=== PATIENT | male | born 1955 | race Two or more races ===

== ENCOUNTER 2024-09-19 09:05 | Day surgery (SDC) | payer MEDICARE ==
[2024-09-16 09:25] LABS: Basophils # (auto) 0.1 10 ^3/uL (0-0.2); Basophils % (auto) 0.8 % (0.0-2.0); Eosinophils # (auto) 0.1 10 ^3/uL (0-0.8); Eosinophils % (auto) 0.7 % (0.0-7.0); Hematocrit 42.1 % (41.0-53.0); Hemoglobin 14.7 g/dL (13.5-17.5); Lymphocytes # (auto) 1.5 10 ^3/uL (0.4-5.4); Mean Corpuscular Hemoglobin 30.9 pg (28.0-32.0); Mean Corpuscular Hgb Conc. 34.9 g/dL (32.0-36.0); Mean Corpuscular Volume 88.4 fL (80.0-100.0); Monocytes # (auto) 0.5 10 ^3/uL (0-1.3); Monocytes % (auto) 7.7 % (0.0-12.0); Neutrophils # (auto) 4.9 10 ^3/uL (1.6-8.6); Neutrophils % (auto) 69.8 % (37.0-80.0); Nucleated Red Blood Cells % 0.1 %; Platelet Count (auto) 294 10^3/uL (140-450); Red Blood Cells 4.77 10^6/uL (4.5-5.90); Red Cell Distribution Width 13.3 % (11.8-14.3); White Blood Cell 7.1 10^3/uL (4.4-10.8)
[2024-09-16 09:35] LABS: INR 1.04 (0.9-1.15); Partial Thromboplastin Time 25.4 SEC (24.5-34.5)
[2024-09-16 10:09] LABS: Alanine Aminotransferase 29 U/L (7-40); Alkaline Phosphatase 71 U/L (46-116); Anion Gap 8 (5-15); Calcium 9.9 mg/dL (8.7-10.4); Carbon Dioxide 27 mmol/L (20-31); Chloride 105 mmol/L (98-107); Glucose 75 mg/dL (74-106); Potassium 4.5 mmol/L (3.5-5.1); Sodium 140 mmol/L (136-145)
[2024-09-16 10:10] LABS: Blood Urea Nitrogen 12 mg/dL (9-23); Total Protein 7.3 g/dL (5.7-8.2)
[2024-09-16 10:11] LABS: Aspartate Aminotransferase 16 U/L (13-40)
[2024-09-16 10:12] LABS: Albumin 4.9 g/dL (3.2-4.8); Bilirubin, Total 0.6 mg/dL (0.2-1.0)
[~2024-09-19] VITALS: Ht 175.3 cm; Wt 101.6 kg
[~2024-09-19 09:05] MED LIST: ASPI-543 PO; GABA-1308 PO; INSU100I28 IJ; INSU100I33 SC; LATA0.008 EACHEYE; LISI40TA16 PO; ROSU10TA16 PO
[2024-09-19] MEDS ORDERED: SODIUM CHLORIDE LOCK 10 ML ONE (10:57)
[2024-09-19] MEDS ORDERED: HYDROmorphone HCL 2 MG/ML VL/or syr ONE (10:58)
[2024-09-19 11:19] VITALS: O2SAT 97
[2024-09-19] MEDS: MIDAZOLAM HCL 5 MG/ML-1ML VIAL ONE (11:27)
[2024-09-19] MEDS: fentaNYL CITRATE 100 MCG/2 ML VL ONE (11:27)
[2024-09-19] MEDS: diphenhdrAMINE HCL 50 MG/1 ML VL ONE (11:27)
[2024-09-19 11:55] VITALS: PULSE 72; RESP 13; TEMP 98; O2SAT 96
--- NOTE | 2024-09-19 11:58 | DVHOP2 ---
Operative Report DATE OF OPERATION: 09/19/24 PROCEDURE: Colonoscopy with snare polypectomy. PREOPERATIVE INDICATION: The patient is a 69 -year-old male undergoing colonoscopy for colon cancer screening POSTOPERATIVE DIAGNOSES: 1. There was a 1 cm benign-appearing cecal polyp that was seen and removed by hot snare polypectomy 2. There were three diminutive other adjacent cecal and ileocecal valve polyps that were seen and removed by cold biopsy forceps 3. There were 2 1-2 mm benign-appearing transverse colon polyps that was seen and removed by cold biopsy forceps 4. There was a 2 mm benign-appearing sigmoid polyp that was seen and removed via cold biopsy forceps 5. Trace to 1+ internal hemorrhoids otherwise grossly normal examination up to the cecum PROCEDURE PERFORMED BY: Bolivar Herman M.D. SCOPE: Olympus videocolonoscope. ASA CLASS: 2. PREOPERATIVE MEDICATIONS: Versed 3 mg IV, fentanyl 75 mcg IV, Benadryl 50 mg IV PROCEDURE IN DETAIL: After obtaining an informed consent, the patient was placed on left lateral decubitus position. He was then sedated with the above medications. A rectal examination was performed that was normal. The colonoscope was then passed through the anus into the rectosigmoid and through the descending, transverse, and ascending colon up to the cecum with visualization of the appendiceal orifice, base of the cecum and the ileocecal valve. The colonoscope was then withdrawn. In the base of the cecum there was a 1 cm benign-appearing polyp that was seen and removed by hot per snare polypectomy There were three other smaller benign-appearing polyps that were removed by cold biopsy forceps. In the transverse colon there were two less than 5 mm benign-appearing polyps were seen and removed by cold biopsy forceps In the sigmoid there was a single 2 mm benign-appearing polyp that was seen and removed by cold biopsy forceps On retroflexion straight on view he had trace to 1+ internal hemorrhoids. The patient tolerated the procedure well without difficulty. WITHDRAWAL TIME: 14 minutes QUALITY OF THE PREP: [place] Bowel Prep score: 8. COMPLICATIONS : None SPECIMENS: Cecal and ileocecal valve polyps Transverse colon polyps Sigmoid polyp DISPOSITION: Stable D/C to home PLAN: 1. Repeat colonoscopy base on biopsy result likely in 3-5 years 2. Increase fluid and fiber intake 3. Resume GI soft diet advance as tolerated 4. Outpatient follow up with me in 4-6 weeks to review results and discuss further management BOLIVAR HERMAN MD Sep 19, 2024 11:58
[2024-09-19 12:05] VITALS: PULSE 68; RESP 12; O2SAT 99
[2024-09-19 12:25] VITALS: BP 113/77; PULSE 70; RESP 15; O2SAT 94
== END 2024-09-19 12:40 | disposition home or self-care (01) ==
LOC: GI 09:05
PROVIDERS: ATTEND Internal Medicine Gastroenterology
DX: R10.9 Unspecified abdominal pain (principal); D12.0 Benign neoplasm of cecum; D12.5 Benign neoplasm of sigmoid colon; D12.3 Benign neoplasm of transverse colon; K64.0 First degree hemorrhoids; I10 Essential (primary) hypertension; E11.9 Type 2 diabetes mellitus without complications; Z86.73 Personal history of transient ischemic attack (TIA), and cerebral infarction without residual deficits; Z79.899 Other long term (current) drug therapy; Z79.84 Long term (current) use of oral hypoglycemic drugs; Z98.890 Other specified postprocedural states
CPT/HCPCS: 36415; 45380; 45385; 80053; 82962; 85025; 85610; 85730; 88305; J1200; J2250; J3010; J7030; 99152; 99153